=== PATIENT | female | born 1955 | race Caucasian/White ===

== ENCOUNTER → 2016-06-07 | Outpatient (CLI) | payer MEDICARE, MEDICAID ==
[~2016-06-07] MED LIST: LIPITOR40 M1 PO; PRILOSEC20 M1 PO; TOPROL XL50 M1 PO; VASOTEC10 MG PO
== END | disposition short-term general hospital (02) ==
LOC: CLVASC 14:21
DX: I25.10 Atherosclerotic heart disease of native coronary artery without angina pectoris (principal); I73.9 Peripheral vascular disease, unspecified; Z95.1 Presence of aortocoronary bypass graft

== ENCOUNTER → 2016-06-28 | Outpatient (CLI) | payer MEDICARE, MEDICAID | END | disposition short-term general hospital (02) | LOC: CLONCO 14:18 | DX: D72.829 Elevated white blood cell count, unspecified (principal); D75.1 Secondary polycythemia ==